=== PATIENT | female | born 1990 | race African-American/Black ===

== ENCOUNTER 2016-11-29 09:18 | Emergency (ER) | payer OTHER ==
[2016-11-29] MEDS ORDERED: Ondansetron ODT 4 MG TAB ONE (09:35)
[2016-11-29 09:41] LABS: Blood, Urine Negative (Negative); Clarity Clear (Clear); Glucose, Urine (Dipstick) Negative (Negative); Leukocyte Trace (Negative); Nitrite Negative (Negative); Protein, Urine (Dipstick) 30 mg/dL (Neg-Trace); Specific Gravity, Urine 1.025 (1.005-1.030)
[2016-11-29 09:51] LABS: Bilirubin Negative (Negative); Icto Negative (Negative); Pregnancy Test - Urine (BHCG) Negative (NEGATIVE); Pregu Control Background? CLEAR/WHITE (CLR/WHITE); Pregu Control Bar Appear? YES (CONTROL BAR); Specific Gravity 1.025 (1.002-1.036)
[2016-11-29 10:15] LABS: Bacteria/HPF None Seen HPF (None Seen); RBC/HPF None Seen HPF (0-3); WBC/HPF None Seen HPF (0-3)
== END 2016-11-29 10:10 | disposition home or self-care (01) ==
LOC: NAV ERS 09:18
DX: K52.9 Noninfective gastroenteritis and colitis, unspecified (principal); D64.9 Anemia, unspecified
CPT/HCPCS: 81003; 81015; 81025; 99284; Q0162

== ENCOUNTER 2017-02-02 09:53 | Emergency (ER) | payer OTHER | END 2017-02-02 10:28 | disposition home or self-care (01) | LOC: NAV ERS 09:53 | DX: O99.511 Diseases of the respiratory system complicating pregnancy, first trimester (principal); J01.90 Acute sinusitis, unspecified; Z3A.13 13 weeks gestation of pregnancy | CPT/HCPCS: 99283 ==

== ENCOUNTER 2017-04-13 17:55 | Emergency (ER) | payer OTHER | END 2017-04-13 18:17 | disposition home or self-care (01) | LOC: NAV ERS 17:55 | DX: Z04.1 Encounter for examination and observation following transport accident (principal); O99.712 Diseases of the skin and subcutaneous tissue complicating pregnancy, second trimester; L98.9 Disorder of the skin and subcutaneous tissue, unspecified; Z3A.21 21 weeks gestation of pregnancy; V89.2XXA Person injured in unspecified motor-vehicle accident, traffic, initial encounter | CPT/HCPCS: 99283 ==